=== PATIENT | male | born 1980 | race Caucasian/White ===

== ENCOUNTER 2017-06-09 02:24 | Emergency (ER) | payer SELFPAY ==
[2017-06-09 03:03] LABS: CHLORIDE,CL 108 mmol/L (98-107); SODIUM,NA 143 mmol/L (136-145)
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
== END 2017-06-09 03:50 | disposition short-term general hospital (02) ==
LOC: VM.ED 02:24
DX: S01.112A Laceration without foreign body of left eyelid and periocular area, initial encounter (principal); S01.01XA Laceration without foreign body of scalp, initial encounter; S80.812A Abrasion, left lower leg, initial encounter; S80.811A Abrasion, right lower leg, initial encounter; S60.512A Abrasion of left hand, initial encounter; S60.511A Abrasion of right hand, initial encounter; R41.0 Disorientation, unspecified; I95.9 Hypotension, unspecified; V59.9XXA Occupant (driver) (passenger) of pick-up truck or van injured in unspecified traffic accident, initial encounter
CPT/HCPCS: 36415; 71010; 80053; 85025; 85610; 85730; 96361; 96374; 99285; G0480